=== PATIENT | female | born 1950 ===

== ENCOUNTER 2022-10-09 11:13 | Outpatient (CLI) | payer BC | END 2022-10-09 23:59 | disposition short-term general hospital (02) | LOC: EMS 11:13 | DX: M25.552 Pain in left hip (principal); W01.0XXA Fall on same level from slipping, tripping and stumbling without subsequent striking against object, initial encounter; Y93.01 Activity, walking, marching and hiking; Y92.89 Other specified places as the place of occurrence of the external cause | CPT/HCPCS: A0425; A0429 ==